=== PATIENT | female | born 1965 | race Caucasian/White ===

== ENCOUNTER 2018-11-23 18:48 | Emergency (ER) | payer SELFPAY ==
[2018-11-23 19:10] VITALS: O2SAT 96
[2018-11-23 19:47] LABS: BASO # 0.1 K/uL (0.0-0.2); BASO % 0.8 % (0.0-2.0); EOS # 0.3 K/uL (0.0-0.7); EOS % 3.8 % (0.0-4.0); LYMPH # 1.7 K/uL (1.0-4.3); LYMPH % 24.5 % (20.0-40.0); MEAN CELL VOLUME 90.9 fL (81.0-99.0); MEAN CORPUSCULAR HEMOGLOBIN 30.1 pg (27.0-31.0); MEAN CORPUSCULAR HGB CONC 33.1 g/dL (33.0-37.0); MEAN PLATELET VOLUME 8.7 fL (7.2-11.7); MONO # 0.4 K/uL (0.0-0.8); MONO % 6.2 % (0.0-10.0); NEUT # 4.6 K/uL (1.8-7.0); NEUT % 64.7 % (50.0-75.0); NRBC % 0.1 % (0.0-2.0); RBC 4.98 Mil/uL (3.80-5.20); RED CELL DISTRIBUTION WIDTH 13.6 % (11.5-14.5); WHITE BLOOD COUNT 7.1 K/uL (4.8-10.8)
[2018-11-23] MEDS ORDERED: Albuterol 0.083% Inhal Sol (2.5 mg/3 mL) UD IH STA (19:54)
--- NOTE | 2018-11-23 20:00 | C.PDOC ---
History Of Present Illness 53 year old female presents to the ED for evaluation of shortness of breath that has been intermittent for four days. Patient reports feeling difficulty breathing from her lower throat/upper chest region. She denies fever, chills, co ugh, chest pain, palpitations, foreign body sensation, or dysphagia. Patient admits to social history of smoking; she admits to smoking one pack/day for twenty years and states she recently cut back to smoking 4-5 cigarettes/day. Patient denies recent surgeries, airplane travel, or porlonged immobilization. Patient denies family history of blood clots or history of anxiety and panic attacks. Time Seen by Provider: 11/23/18 19:02 Chief Complaint (Nursing): Shortness Of Breath History Per: Patient History/Exam Limitations: no limitations Onset/Duration Of Symptoms: Days (4), Intermittent Episodes Current Symptoms Are (Timing): Still Present Associated Symptoms: denies: Fever, Chills, Chest Pain, Bloody Cough, Productive Cough Past Medical History Reviewed: Historical Data, Nursing Documentation, Vital Signs Vital Signs: Last Vital Signs Temp 98 F 11/23/18 18:51 Pulse 97 H 11/23/18 18:51 Resp 18 11/23/18 19:09 BP 143/76 11/23/18 18:51 Pulse Ox 96 11/23/18 19:09 - Medical History PMH: No Chronic Diseases Surgical History: No Surg Hx Family History: States: Unknown Family Hx - Social History Hx Alcohol Use: No Hx Substance Use: No - Immunization History Hx Tetanus Toxoid Vaccination: No Hx Influenza Vaccination: No Hx Pneumococcal Vaccination: No Review Of Systems Constitutional: Negative for: Fever, Chills Cardiovascular: Negative for: Chest Pain, Palpitations Respiratory: Positive for: Shortness of Breath. Negative for: Cough Physical Exam - Physical Exam Appears: Non-toxic, No Acute Distress, Other (obese ) Skin: Normal Color, Warm, Dry Head: Atraumatic, Normacephalic Eye(s): bilateral: Normal Inspection Oral Mucosa: Moist Throat: Normal, No Erythema, No Exudate, No Drooling Neck: Normal ROM, Supple Chest: Symmetrical, No Deformity, No Tenderness Cardiovascular: Rhythm Regular, No Murmur Respiratory: Normal Breath Sounds, No Rales, No Rhonchi, No Wheezing Gastrointestinal/Abdominal: Soft, No Tenderness, No Guarding, No Rebound, Other (obese ) Extremity: Normal ROM, Capillary Refill (less than 2 seconds ), No Swelling Neurological/Psych: Oriented x3, Normal Speech, Normal Cognition ED Course And Treatment - Laboratory Results Result Diagrams: 11/23/18 19:45 11/23/18 19:45 O2 Sat by Pulse Oximetry: 96 Pulse Ox Interpretation: Normal - Other Rad XR Neck/soft tissue X-Ray: Viewed By Me, Read By Radiologist Interpretation: EXAM: CR Cervical spine, 2 View. CLINICAL HISTORY: Soft tissue neck xray sob throat tightness. COMPARISON: None provided. FINDINGS: BONES: No acute fracture or aggressive appearing osseous lesion. the alignment of the visualized cervical vertebrae are within normal limits. DISCS/DEGENERATIVE CHANGES: The disc spaces are preserved. SOFT TISSUES: A radiopaque foreign body is not identified. MISCELLANEOUS: The airway, as visualized, appears intact. Although the entire chest is not visualized, and the position of the patient is unknown, there is cephalization of pulmonary blood flow suggesting CHF, correlate clinically. IMPRESSION: 1. A radiopaque foreign body is not identified. 2. The airway, as visualized, appears intact. 3. Although the entire chest is not visualized, and the position of the patient is unknown, there is cephalization of pulmonary blood flow suggesting CHF, correlate clinically. Progress Note: Bloodwork, CXR, EKG ordered and reviewed. Albuterol INH and Solu-Medrol IVP given. Disposition Counseled Patient/Family Regarding: Diagnosis, Need For Followup, Rx Given - Disposition Referrals: [facility] [Outside] Disposition: HOME/ ROUTINE Disposition Time: 21:05 Condition: STABLE Additional Instructions: FOLLOW UP WITH YOUR DOCTOR IN 1-2 DAYS USE ALBUTEROL INHALER NEEDED RETURN TO ER IF YOUR SYMPTOMS WORSEN Prescriptions: Albuterol HFA [Ventolin HFA 90 mcg/actuation (8 g)] 0.09 mg IH Q4 PRN #1 puff PRN Reason: Wheezing Forms: [facility] ([place]), General Discharge Instructions Print Language: MONTSERRATIAN - Clinical Impression Clinical Impression: Bronchospasm - Scribe Statement The provider has reviewed the documentation as recorded by the Scribe (Nathalia Hager) Provider Attestation: All medical record entries made by the Scribe were at my direction and personally dictated by me. I have reviewed the chart and agree that the record accurately reflects my personal performance of the history, physical exam, medical decision making, and the department course for this patient. I have also personally directed, reviewed, and agree with the discharge instructions and disposition.
[2018-11-23 20:01] LABS: BLOOD UREA NITROGEN 17 mg/dL (7-17); CALCIUM 8.8 mg/dl (8.6-10.4); GFR NON-AFRICAN AMERICAN > 60
[2018-11-23] MEDS ORDERED: Albuterol 0.083% Inhal Sol (2.5 mg/3 mL) UD ONE (20:02)
[2018-11-23 20:06] LABS: ALB/GLOB RATIO 1.3 (1.0-2.1); ALBUMIN 4.2 g/dL (3.5-5.0); ALT/SGPT 32 U/L (9-52); AST/SGOT 34 U/L (14-36)
[2018-11-23 20:14] LABS: B-TYPE NATRIURETIC PEPTIDE 52.5 pg/mL (0-900); CK-MB 0.97 ng/mL (0.0-3.38)
[2018-11-23 21:17] VITALS: BP 145/80; PULSE 86; RESP 14; TEMP 98.1
--- NOTE | 2018-11-24 10:35 | RAD ---
Date of service: 11/23/2018 HISTORY: Shortness of breath COMPARISON: No prior. TECHNIQUE: Chest PA and lateral FINDINGS: LINES AND TUBES: None. LUNG AND PLEURA: The lungs are well inflated and clear. There is mild pulmonary venous congestion. No focal consolidation. No pleural effusion or pneumothorax. HEART AND MEDIASTINUM: The heart is not enlarged. No aortic atherosclerotic calcification present. The hilar and mediastinal contours are within normal limits. SKELETAL STRUCTURES: The bony structures are within normal limits for the patient's age. VISUALIZED UPPER ABDOMEN: Normal. OTHER FINDINGS: None. IMPRESSION: No acute findings.
--- NOTE | 2018-11-24 11:35 | RAD ---
Date of service: 11/23/2018 PROCEDURE: Radiographs of the soft tissues of the neck INDICATION: Low neck pain COMPARISON: None. FINDINGS: AP and lateral views of the neck were obtained utilizing soft tissue technique. The prevertebral soft tissues are not widened. The soft tissues are unremarkable including the epiglottis, aryepiglottic folds and subglottic airway. There is mild degenerative disc disease at C5-6 and C6-7 with reduced disc heights, anterior spurring and facet arthropathy. IMPRESSION: No prevertebral soft tissue thickening, airway obstruction or foreign body. 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
--- NOTE | 2018-11-25 13:27 | CARD ---
APPROVED REPORT Date of service: 11/23/2018 EKG Measurement Heart [id number] <Conclusion> Normal sinus rhythm Normal ECG
== END 2018-11-23 21:17 | disposition home or self-care (01) ==
LOC: C.ER 18:48
DX: J98.01 Acute bronchospasm (principal); Z87.891 Personal history of nicotine dependence
CPT/HCPCS: 70360; 71046; 80053; 82550; 82553; 83880; 84484; 85025; 85378; 93005; 96374; 99284; J2930